=== PATIENT | female | born 1955 | race Caucasian/White ===

== ENCOUNTER 2016-07-26 06:12 | Day surgery (SDC) | payer OTHER ==
--- NOTE | 2016-07-25 19:05 | HISTORY AND PHYSICAL ---
ADMITTED: 07/26/2016 HISTORY OF PRESENT ILLNESS: The patient is a 60-year-old female who fell in 2015 and injured both ankles. States the right ankle has progressively gotten more painful. She has been immobilized in a fracture boot, which has not helped. MRIs taken of both ankles revealed significant pathology of the tear of the peroneal tendon as well as a tear of the posterior tibial tendon and an avulsion fracture of the navicular. She did say she would like to have it surgically repaired. She primarily speaks Portuguese and is seen with her daughter, who is her practical nursing faculty. MEDICAL/SURGICAL HISTORY: She has a history of anxiety and depression, neuritis and back pain. She states she has had some type of left foot surgical procedure carried out by unknown provider. PRIMARY CARE PROVIDER: Michelle CARDENAS MEDICATIONS: 1. Fluoxetine 40 mg 1 by mouth daily. 2. Geovani-Krill 300 mg/90, a 50 mg tablet 1 by mouth daily. 3. Metoclopramide 10 mg disintegrating tablet 1 by mouth daily. 4. Extended-release morphine 15 mg. 5. Gabapentin 300 mg 1 by mouth t.i.d. 6. Senexen 8.6 mg tablet 1 by mouth daily. 7. Vitamin D2, 50,000 mg 1 by mouth daily. 8. Vitamin E 1000 unit capsule 1 by mouth daily. ALLERGIES: 1. REPORTS NO KNOWN DRUG OR FOOD ALLERGY. SOCIAL HISTORY: She is . Does not smoke. FAMILY HISTORY: Noncontributory to chief complaint. REVIEW OF SYSTEMS: A 10-point review of systems positive for chronic back pain, anxiety and some depression. PHYSICAL EXAMINATION: GENERAL: The patient is alert and oriented x3. HEAD AND NECK: PERRLA. Normocephalic. HEART: Regular rate and rhythm. Regular S1 and S2. LUNGS: Clear to auscultation. No wheezing, rhonchi, or rales. ABDOMEN: Soft, tender, nondistended. No palpable masses or nodes. LOWER EXTREMITY: Vascular: DP and PT pulses are palpable at +1/4. Subpapillary venous plexus capillary refill within normal limits. NEUROLOGIC: Deep tendon reflexes and apocrine sensations are intact. Orthopedically, there is tenderness along the course of the posterior tibial tendon, right greater than left, and pain along the lateral aspect of the foot, around the course of the peroneal brevis tendon. LAB/IMAGIN. MRI revealed a tear and attenuation of the posterior tibial tendon at its attachment points on the navicular with a small avulsion fracture noted. 2. A split linear tear of the peroneal brevis tendon. IMPRESSION: 1. Torn posterior tibial and peroneal tendon tears of the right foot PLAN: The patient is scheduled for an outpatient procedure consisting of a primary repair of the posterior tibial tendon and peroneal tendon, right foot. There are no contraindications to surgery at this time. Surgery is scheduled on an outpatient basis at [facility] on 07/26/2016.
[~2016-07-26 06:12] MED LIST: FLUOXETINE HCL40 MG PO; HAIR/SKIN/NAILS PO; KRILL OIL OMEG300 MG PO; METOCLOPRAMIDE10 MG PO; MORPHINE SULFAT15 MG PO; OMEPRAZOLE20 M1 PO; SENEXON8.6 MG PO; VITAMIN D-31000 UNIT PO; [UNRECOGNIZED DRUG - OTHER] PO
[2016-07-26] MEDS ORDERED: GABAPENTIN100 MG (06:41)
--- NOTE | 2016-07-26 07:00 | NUR ---
PT STATED DIDN'T WANT THE SYNTHETIC PLASTERER PT CONFIRMED PROCEDURE PT VERIFIED SIGNATURE RIGHT FOOT WAS WASHED WITH CHLORHEXIDINE WIPES PT MARKED SITE
[2016-07-26] MEDS ORDERED: HYDROMORPHONE HC2 MG PO (09:33)
--- NOTE | 2016-07-26 09:34 | Provider's Discharge Care Plan ---
Problem, Goal, Plan Problem List 1. Unspecified sprain of right foot, subsequent encounter Goals: Improve function Instructions: Follow up as directed
--- NOTE | 2016-07-26 09:34 | Provider's Discharge Care Plan ---
Problem, Goal, Plan Problem List 1. Unspecified sprain of right foot, subsequent encounter Goals: Improve function Instructions: Follow up as directed
--- NOTE | 2016-07-26 09:35 | NUR ---
PATIENT ARRIVED TO PACU AT 0927. SPONT RESP. AWAKE AND AWARE. VITALS STABLE. R LE ELEVATED WITH ICE BEHIND R KNEE. TOES PINK AND WARM. POSITIVE PULSE NOTED. WILL CONTINUE TO MONITOR.
--- NOTE | 2016-07-26 09:46 | NUR ---
PATIENT MEDICATED FOR PAIN PER ANESTHESIA ORDERS. VITALS REMAIN STABLE. WARM BLANKETS APPLIED FOR COMFORT.
--- NOTE | 2016-07-26 10:20 | NUR ---
PATIENT ARRIVED BACK TO SURGICAL CARE AT 1015. VITALS STABLE. DRESSINGS CLEAN,DRY AND INTACT. TOLERATING PO INTAKE WITHOUT NAUSEA. PAIN LEVEL STATED 3/10. WILL CONTINUE TO MONITOR.
--- NOTE | 2016-07-26 13:37 | NUR ---
PATIENT DEPARTED SCU AT 1328. VITALS STABLE. DRESSINGS C,D,I. PATIENT STATES PAIN IS MINIMAL. IV DISCONTINUED. DISCHARGE INSTRUCTIONS DISCUSSED. QUESTIONS ENCOURAGED AND ANSWERED BY RN. PATIENT LEFT WITH DAUGHTER, WHO IS HER RIDE.
--- NOTE | 2016-07-26 18:11 | OPERATIVE REPORT ---
DATE OF SURGERY: 07/26/2016 SURGEON: Lenny Huang DPM PREOPERATIVE DIAGNOSES: 1. Torn posterior tibial tendon. 2. Torn peroneal brevis tendon POSTOPERATIVE DIAGNOSES: 1. Torn posterior tibial tendon. 2. Torn peroneal brevis tendon PROCEDURES PERFORMED: 1. Primary repair of posterior tibial tendon 2. Primary repair of peroneal tendon, right foot ANESTHESIA: LMA. HEMOSTASIS: Achieved by pneumatic mid calf tourniquet inflated to 200 mmHg pressure. TOURNIQUET TIME: Total tourniquet time 70 minutes. MATERIALS: 3-0 Supramid, 3-0 Polysorb, 4-0 Polysorb and 4-0 Surgipro. INJECTABLES: Injected 20 mL of 0.5% bupivacaine plain. COMPLICATIONS: None. CONDITION: The patient tolerated anesthesia and procedure well. INDICATIONS: The patient is a 60-year-old female who, in January, fell and injured both feet and ankles. MRIs revealed tears of the posterior tibial tendon, a nondisplaced avulsion fracture of the navicular, and the torn peroneal brevis tendon. States that she has been wearing a boot to no avail, still very painful. Therefore, surgical procedures are indicated. She is well aware of the planned procedure. No contraindications to surgery at this time. SURGICAL TECHNIQUE: The patient was brought to the operating room and placed on the table in the supine position. General anesthetic was then administered. A pneumatic tourniquet was then placed above the right ankle at mid calf level. The right lower extremity was then prepped and draped in a normal sterile fashion. At this time, an intraoperative pause was carried out for positive identification of proper limb, and consent form verified and confirmed, as well as the administration of IV antibiotics, i.e. cefazolin 2 grams. The Esmarch bandage was then utilized to exsanguinate the limb. The tourniquet was inflated. Attention was directed to procedure #1. Repair of the posterior tibial tendon: A linear incision was made, extending from just inferior to the medial malleolus, extending distally towards the posterior tibial tendon insertion point on the navicular. Dissection was carried down deep. The superficial vessels were bovied or a large vein was then tied off with 3-0 ties. The paratenon was then incised. Upon incision, there was noted to be a linear tear of the posterior tibial tendon and possibly mid substance, just inferior to the medial malleolus, extending distally toward the insertion point of the navicular. Fluoroscopy was employed to verify that the fracture had indeed healed and there was no accessory navicular noted. The tendon was then tubularized and then reapproximated with 3-0 Supramid. The area was flushed. Paratenon was repaired with 3-0 Polysorb and subcutaneous with 4-0, and the skin edge was then reapproximated with 4-0 Surgipro in a running fashion. Attention was then directed to procedure #2. Repair of the peroneal brevis tendon: At this time, a linear incision was made just inferior to the lateral malleolus and then extending distally towards the styloid process. Superficial vessels were also either ligated or retracted. The paratenon was then incised. The linear tear of the peroneal brevis tendon was seen approximately mid substance, just distal to the fibula and then extending towards the base of the fifth metatarsal. The tendon was also tubularized and then reapproximated and coapted with 3-0 Supramid. The paratenon was repaired with 3-0 Polysorb, subcutaneous with 4-0 and skin edges were then reapproximated in a running fashion with 4-0 Surgipro. The area was locally anesthetized. A light compressive dressing was applied. The tourniquet was released. She was placed in a [id number] prefabricated Ortho-Glass splint with the foot at 90 degrees of the lower leg. She tolerated the procedure and anesthesia well, and left the room with vital signs stable. While in recovery, instructions for nonweightbearing with the aid of knee scooter. Prognosis is guarded. She will be discharged home in stable condition.
== END 2016-07-26 13:28 | disposition home or self-care (01) ==
LOC: OR SRH 06:12 → SCU SRH 06:14
PROVIDERS: Podiatrist
PROC: 0LQV0ZZ Repair Right Foot Tendon, Open Approach (ICD-10-PCS; principal; 2016-07-26 07:30)
DX: S96.811A Strain of other specified muscles and tendons at ankle and foot level, right foot, initial encounter (principal)
CPT/HCPCS: 29240; 50002; 60001; 70002; 80212; 80575; 84038; 84081; 84522; 90074; 90100; 95059